=== PATIENT | female | born 1960 | race Caucasian/White ===

== ENCOUNTER 2021-07-22 08:00 | Outpatient (CLI) | payer MEDICARE, OTHER ==
--- NOTE | 2021-07-22 18:54 | XRAY Report ---
PROCEDURE: Chest 2 View X-Ray INDICATIONS: PRODUCTIVE COUGH/SHORTNESS OF BREATH TECHNIQUE: 2 view(s) of the chest. COMPARISON: None. FINDINGS: Surgical changes and devices: None. Lungs and pleura: No pleural effusions or pneumothorax. Lungs are clear. Mediastinum: Mediastinal contours are normal. Heart size is normal. Bones and chest wall: No suspicious bony abnormalities. Soft tissues appear unremarkable. IMPRESSION: No acute pulmonary process. Reviewed by: Fartun Duval MD on 07/22/2021 6:52 PM PDT Approved by: Fartun Duval MD on 07/22/2021 6:52 PM PDT Station ID: [id number]
== END 2021-07-22 23:59 | disposition home or self-care (01) ==
LOC: DI.S 08:00
PROVIDERS: ATTEND Physician Assistant Medical
DX: R06.02 Shortness of breath (principal); R05.8 Other specified cough

== ENCOUNTER 2021-07-22 18:25 | Outpatient (CLI) | payer OTHER, MEDICARE | END 2021-07-22 23:59 | disposition home or self-care (01) | LOC: LAB.S 18:25 | PROVIDERS: ATTEND Physician Assistant Medical | DX: R09.89 Other specified symptoms and signs involving the circulatory and respiratory systems (principal); Z20.822 Contact with and (suspected) exposure to COVID-19 ==

== ENCOUNTER 2022-07-28 08:00 | Outpatient (CLI) | payer OTHER, MEDICARE ==
--- NOTE | 2022-07-29 02:55 | XRAY Report ---
PROCEDURE: Foot 3 View RT INDICATIONS: CONTUSION OF RIGHT FOOT TECHNIQUE: 3 views of the foot were acquired. COMPARISON: None. FINDINGS: Bones: No fractures or dislocations. There are postsurgical changes status post fusion at the first tarsometatarsal joint. Mild to moderate degeneration demonstrated at the first metatarsophalangeal j oint. There is also mild degeneration of the interphalangeal joints. Fusion of the second proximal in terphalangeal joint is noted. No suspicious bony lesions. Soft tissues: No suspicious soft tissue calcifications or masses. IMPRESSION: 1. No fracture or dislocation. Reviewed by: Tito Dial MD on 07/29/2022 2:54 AM PDT Approved by: Tito Dial MD on 07/29/2022 2:54 AM PDT Station ID: [id number]
== END 2022-07-28 23:59 | disposition home or self-care (01) ==
LOC: DI.S 08:00
PROVIDERS: ATTEND Physician Assistant
DX: S90.31XA Contusion of right foot, initial encounter (principal)